=== PATIENT | female | born 1950 | race Caucasian/White ===

== ENCOUNTER 2023-06-07 21:50 | Emergency (ER) | payer OTHER, SELFPAY ==
[2023-06-07 21:51] VITALS: BP 128/94; BMI 24.3
--- NOTE | 2023-06-08 01:16 | ED.GENMED ---
History of Present Illness
<ROBSON Ro - Last Filed: 06/08/23 01:32>
General
Chief Complaint: Eye Problems
Source: patient and family
Exam Limitations: none
Time Seen by Provider: 06/08/23 00:57
Nursing documentation reviewed up to this point in time: agreed with
Travel History
Have you had any contact with someone who has COVID-19?: No
Do you have any symptoms of coronavirus? Fever > 100 degrees, chills, cough, shortness of breath, sore throat, loss of taste or smell, muscle aches, or headache?: No
History of Present Illness
History of Present Illness:
This is a 72 year old female with a hx of cataracts and HTN, who presents to the ED c/o of flashing lights in her R eye. Pt states she sat down abruptly on her couch and immediately felt pain in her right eye and noticed flashes of lights. Pt states
she now can see a perez 'c-shaped' mass on the right side of her vision. She notes the pain she is experiencing is a dull, constant pain felt toward the back of her eye. Pt notes light makes the flashes worse so she is currently wearing her
corrective sunglasses. She denies any worsening of the pain or floaters with movement. Pt denies any MARTINEZ, dizziness, lightheadedness, CP, SOB, n/v, facial drooping, or changes in her gait.
Pt has a PMH of HTN and denies any PMH of CVA or seizures. She states she has had 2 migraines in the past after her COVID vaccine. Pt denies any family hx of CAD or CVA.
Past History
<ROBSON Ro - Last Filed: 06/08/23 01:32>
Past History
ED Past Medical History: Asthma, HTN, Hypercholesterolemia and Other (Vertigo, Sinusitis, Pessary)
ED Past Surgical History: Appendectomy
Patient has exhibited threatening behavior?: No
Social History
Tobacco: Non-smoker
Alcohol: None
Personal:
Living: with family
Employment: Employed
Family History
Family History: Hypertension; Negative CAD
Review of Systems
<ST JayjayWY - Last Filed: 06/08/23 01:32>
Review of Systems
Allergies reviewed?: Yes
Other source history: family
Constitutional: Reports no symptoms; Denies fever or chills
EENT: Reports other (flashing lights, right eye pain)
Respiratory: Reports no symptoms; Denies trouble breathing
Cardiac: Reports no symptoms; Denies chest pain
ABD/GI: Reports no symptoms; Denies abdominal pain, nausea or vomiting
Skin: Reports no symptoms
Neurological: Reports no symptoms; Denies dizzy or headache
Phy Exam
<Ghazala Oscar [facility] - Last Filed: 06/08/23 01:32>
General Physical Exam
General Presentation: well appearing and no apparent distress
General age: appears stated age
General Skin: warm and dry
General Habitus: normal
General Mental: alert
General Hydration: appears well hydrated
ENT Exam
ENT Exam: EOMI and normocephalic
Eye Exam
Eye Exam: PERRL, EOMI, cornea clear, conjunctiva normal, globe normal, visual acuity normal and visual guerrero normal
Able to obtain acuity?: Yes
Right 20/: 30
Left 20/: 30
Both 20/: 30
Eye Exam General: PERRL: bilateral and EOM intact: bilateral
Pupil Exam: Bilateral: round and reactive
Conjunctival Changes: bilateral: none
Cardiovascular Exam
Cardiovascular Exam: regular rate/rhythm, no gallop and no murmur
Heart Sounds: normal
Pulmonary Exam
Pulmonary Exam: lungs clear, no respiratory distress, no rales, no crackles and no rhonchi
Oxygen Status: room air
Gastrointestinal Exam
Gastrointestinal Exam: normal bowel sounds, non tender, soft and non distended
Palpation: generalized: No tenderness
Neurological Exam
Neurological Exam: alert, oriented x3 and no motor deficits
Musculoskeletal Exam
Musculoskeletal Exam: full ROM
Skin Exam
Skin Exam: normal color and warm/dry
Psychiatric Exam
Psychiatric Exam: normal mood/affect
Course
<ROBSON Ro - Last Filed: 06/08/23 01:32>
Vital Signs
Initial and Last Documented VS:
Initial Vital Signs
Temp Pulse Resp BP Pulse Ox
97.2 F 69 16 128/94 99
06/07/23 21:51 06/07/23 21:51 06/07/23 21:51 06/07/23 21:51 06/07/23 21:51
Last Documented Vital Signs
Temp Pulse Resp BP Pulse Ox
97.2 F 69 16 128/94 99
06/07/23 21:51 06/07/23 21:51 06/07/23 21:51 06/07/23 21:51 06/07/23 21:51
<Barbara Herbert DO - Last Filed: 06/08/23 02:02>
Vital Signs
Initial and Last Documented VS:
Initial Vital Signs
Temp Pulse Resp BP Pulse Ox
97.2 F 69 16 128/94 99
06/07/23 21:51 06/07/23 21:51 06/07/23 21:51 06/07/23 21:51 06/07/23 21:51
Last Documented Vital Signs
Temp Pulse Resp BP Pulse Ox
97.2 F 69 16 128/94 99
06/07/23 21:51 06/07/23 21:51 06/07/23 21:51 06/07/23 21:51 06/07/23 21:51
<Barbara Herbert DO - Last Filed: 06/08/23 02:02>
*Pulse Oximetry
Patient hypoxic: no
*Critical Care Note
Total Time (30-74mins, 75-104mins- exclusive of procedures): Not Applicable
ED Attending Note
<ROBSON Ro - Last Filed: 06/08/23 01:32>
-
Portions of this chart may have been created with voice recognition software.� Occasional wrong word or��sound alike� substitutions may have occurred due to the inherent limitations of voice recognition software.
<Barbara Herbert DO - Last Filed: 06/08/23 02:02>
ED Attending Note
Patient seen and examined by attending physician: Yes
I performed the substantive portion of visit, reviewed & personally made and approve the management plan that is documented in note by myself or CRISTY.: Yes
I performed a history and physical exam of patient and discussed management with resident, I reviewed resident's note and agree with documented findings and plan of care.: Yes
ED Attending Note:
This is a 72-year-old woman who has history of hypertension, hyperlipidemia who presents with somewhat abrupt onset of brief, intermittent flashing lights in right eye after abruptly 'flopping down on her couch'
Symptoms began around 8 PM tonight and had been persistent with a C-shaped lake webbing in her right mid to lateral vision. She does admit to very mild discomfort of right eye but no headache. No dizziness nor lightheadedness, no nausea nor
vomiting, no neck pain.
She does admit to somewhat similar episode occurring 3 to 4 years ago, was evaluated by her receivable clerk, Dr. Bassett without specific diagnosis. She does have known cataracts both eyes right worse than left. Her last visit with her
receivable clerk was approximately 1 year ago.
Since arrival to the ED she has had no change in symptoms, she denies loss of vision.
GENERAL: 72-year-old woman appears her stated age, bright and alert, pleasant, appears in no acute distress. Son is accompanying.
EYE: pupils equal and reactive. Extraocular muscles intact. Visual acuity 20/30 bilaterally. Visual guerrero intact bilaterally. There is mild haziness of right lens which obscures ophthalmologic view. Anicteric
NECK: Supple, nontender, no meningismus, no significant adenopathy. No JVD. No bruit.
ENT: oral mucosa is moist. No rhinorrhea.
CARDIAC: Regular rate and rhythm. no murmur.
LUNGS: Clear breath sounds bilaterally, no acute respiratory distress, no wheezes/rales/rhonchi
NEUROLOGICAL: Alert and oriented x3, no focal neuro deficits. Gait is motta and steady.
SKIN: Warm and dry, normal color, skin intact. No rash.
MUSCULOSKELETAL: No C/C/E. peripheral pulses are full and equal b/l. No palpable tenderness.
PSYCH: Normal and appropriate interaction.
Concern for acute retinal pathology such as detachment, vitreal debris/bleeding.
It is however reassuring that patient has no loss of vision, visual guerrero remain full and intact.
It is also reassuring that there has been no progression of symptoms over greater than 5 hours.
She does have moderate cataract formation right I thus posterior elements are difficult to view.
Vital signs are stable. She is without hypertension.
Recommend prompt follow-up with her receivable clerk, Dr. Bassett later this morning for further evaluation. Pt will call office this am.
Discharge Plan
Departure
Patient Disposition: Home (Routine Discharge)
Date of Disposition: 06/08/23
Time of Disposition: 01:46
Patient with high blood pressure during this ER visit?: No
Condition: Good
Discharge Problem:
partial scotoma right eye
Instructions: Floaters in the Eye
Prescriptions:
No Action
rosuvastatin 5 MG tablet
5 mg PO QPM
lactase [Dairy Relief] 1 CAPSULE tablet
2 cap PO PRN PRN (Reason: lactose intolerance)
azelastine 1 SPRAY aerosol,spray
1 spray intranasal BID
olmesartan 20 MG tablet
20 mg PO DAILY
fycexikf-iov-PC-lycopen-lutein [Centrum Silver] 1 EACH tablet
1 tab PO DAILY
Co Q-10
400 mg PO QPM
Levalbuterol
1 puff inhalation PRN PRN (Reason: asthma)
Refresh Tears
1 drp BOTH EYES PRN PRN (Reason: dry eyes)
Vitamin C:
1 tab PO DAILY
Vitamin D3
5 cap PO WEEKLY
Zinc
1 tab PO DAILY
misoprostol 200 MCG tablet
400 mcg PO ONCE
polyethylene glycol 3350 [Miralax] 119 GM powder
119 gm PO PRN PRN (Reason: contispation)
Patient Comments:
patient takes 3 times per week
Referrals:
Lars Bassett MD [Active] - Next open appointment
Interventions
Interventions:
*Risk Screen - Suicide Last Done: 06/07/23 21:51
*Neglect/Abuse Screening Last Done: 06/07/23 21:51
*ED COVID-19 Vaccine History Last Done: 06/07/23 21:51
[2023-06-08 01:45] VITALS: BP 125/68
== END 2023-06-08 02:00 | disposition home or self-care (01) ==
LOC: EMR 21:50
PROVIDERS: EMERGENCY PHYSICIAN Emergency Medicine
DX: H53.451 Other localized visual field defect, right eye (principal); H26.9 Unspecified cataract; I10 Essential (primary) hypertension; E78.5 Hyperlipidemia, unspecified
CPT/HCPCS: 99283

== ENCOUNTER → 2024-03-15 11:31 | Outpatient (REF) | payer OTHER, SELFPAY | LOC: WDC 11:31 | PROVIDERS: ATTENDING PHYSICIAN Family Medicine | DX: Z12.31 Encounter for screening mammogram for malignant neoplasm of breast (principal) | CPT/HCPCS: 77063; 77067 ==

== ENCOUNTER → 2024-04-16 16:56 | Outpatient (REF) | payer OTHER, SELFPAY | LOC: RAD 16:56 | PROVIDERS: ATTENDING PHYSICIAN Nurse Practitioner Adult Health | DX: K59.01 Slow transit constipation (principal) | CPT/HCPCS: 74018 ==

== ENCOUNTER → 2024-06-27 15:05 | Outpatient (REF) | payer OTHER, SELFPAY ==
[2024-06-27 16:17] LABS: % Basophils 0.4 % (0-2); % Eosinophils 0.4 % (0-6); % Immature Granulocytes 0.4 % (0-0.5); % Lymphocytes 14.9 % (20.5-51.1); % Monocytes 3.8 % (1.7-9.3); % Neutrophils 80.1 % (42.2-75.2); Absolute Basophils 0.1 10^3/uL (0-0.2); Absolute Eosinophils 0.1 10^3/uL (0-0.7); Absolute Immature Granulocytes 0.1 10^3/uL (0-0.05); Absolute Lymphocytes 2.1 10^3/uL (1.2-3.4); Absolute Monocytes 0.5 10^3/uL (0.1-0.6); Hematocrit 41.1 % (37.0-47.0); Hemoglobin 13.2 g/dL (12.0-16.0); Mean Corp Hgb Conc. 32.1 g/dL (33.0-37.0); Mean Corpuscular Hgb 26.2 pg (27.0-31.0); Mean Corpuscular Volume 81.5 fL (81.0-99.0); Mean Platelet Volume 9.1 fL (7.4-10.4); Nucleated Red Blood Cells % 0 %; Platelet Count 336 10^3/uL (130-400); Red Blood Cell Count 5.04 10^6/uL (4.20-5.40); Red Cell Dist. Width 14.3 % (11.5-14.5); White Blood Cell Count 13.8 10^3/uL (4.8-10.8)
[2024-06-27 16:31] LABS: ALT (SGPT) 23 U/L (0-35); AST (SGOT) 31 U/L (14-36); Albumin 4.9 g/dl (3.5-5.0); Alkaline Phosphatase 101 U/L (38-126); Blood Urea Nitrogen 11 mg/dl (7-17); Calcium 11.1 mg/dl (8.4-10.2); Carbon Dioxide 28 mmol/L (22-30); Chloride 98 mmol/L (98-107); Glucose 101 mg/dl (70-99); Potassium 4.6 mmol/L (3.5-5.1); Sodium 138 mmol/L (135-145); Total Protein 7.8 g/dl (6.3-8.2); eGFR > 60.00
== END ==
LOC: REG 15:05
PROVIDERS: ATTENDING PHYSICIAN Registered Nurse
DX: R10.32 Left lower quadrant pain (principal)
CPT/HCPCS: 36415; 74177; 80053; 85025; Q9967

== ENCOUNTER → 2024-07-16 16:25 | Outpatient (REF) | payer OTHER, SELFPAY ==
[2024-07-16 17:15] LABS: % Basophils 0.4 % (0-2); % Eosinophils 0.8 % (0-6); % Immature Granulocytes 0.3 % (0-0.5); % Lymphocytes 26.5 % (20.5-51.1); % Monocytes 4.9 % (1.7-9.3); % Neutrophils 67.1 % (42.2-75.2); Absolute Eosinophils 0.1 10^3/uL (0-0.7); Absolute Lymphocytes 2.4 10^3/uL (1.2-3.4); Absolute Monocytes 0.5 10^3/uL (0.1-0.6); Absolute Neutrophils 6.1 10^3/uL (1.4-6.5); Hematocrit 38.5 % (37.0-47.0); Hemoglobin 12.6 g/dL (12.0-16.0); Mean Corp Hgb Conc. 32.7 g/dL (33.0-37.0); Mean Corpuscular Hgb 26.4 pg (27.0-31.0); Mean Corpuscular Volume 80.5 fL (81.0-99.0); Mean Platelet Volume 9.2 fL (7.4-10.4); Nucleated Red Blood Cells % 0 %; Platelet Count 286 10^3/uL (130-400); Red Blood Cell Count 4.78 10^6/uL (4.20-5.40); Red Cell Dist. Width 14.6 % (11.5-14.5); White Blood Cell Count 9.1 10^3/uL (4.8-10.8)
[2024-07-16 17:31] LABS: ALT (SGPT) 27 U/L (0-35); AST (SGOT) 34 U/L (14-36); Albumin 4.3 g/dl (3.5-5.0); Alkaline Phosphatase 85 U/L (38-126); Blood Urea Nitrogen 11 mg/dl (7-17); Carbon Dioxide 27 mmol/L (22-30); Chloride 102 mmol/L (98-107); Glucose 95 mg/dl (70-99); Potassium 4.3 mmol/L (3.5-5.1); Sodium 137 mmol/L (135-145); Total Bilirubin 0.7 mg/dl (0.2-1.3); Total Protein 7.3 g/dl (6.3-8.2); eGFR > 60.00
== END ==
LOC: REG 16:25
PROVIDERS: ATTENDING PHYSICIAN Family Medicine; REFERRING PHYSICIAN Family Medicine
DX: A04.72 Enterocolitis due to Clostridium difficile, not specified as recurrent (principal)
CPT/HCPCS: 36415; 80053; 85025

== ENCOUNTER → 2024-08-19 09:50 | Outpatient (REF) | payer OTHER, SELFPAY | LOC: HWRAD 09:50 | PROVIDERS: ATTENDING PHYSICIAN Obstetrics & Gynecology; FAMILY PHYSICIAN Family Medicine | DX: N83.209 Unspecified ovarian cyst, unspecified side (principal) | CPT/HCPCS: 76830; 76856 ==

== ENCOUNTER → 2024-09-26 15:48 | Outpatient (REF) | payer OTHER, SELFPAY | LOC: RAD 15:48 | PROVIDERS: ATTENDING PHYSICIAN Nurse Practitioner Adult Health | DX: M54.2 Cervicalgia (principal); M54.50 Low back pain, unspecified; M54.9 Dorsalgia, unspecified | CPT/HCPCS: 72040; 72072; 72110 ==